=== PATIENT | female | born 1930 | race Caucasian/White ===

== ENCOUNTER 2018-09-10 18:51 | Observation (INO) ==
[2018-09-10] MEDS ORDERED: Naloxone 0.4 MG/ML INJ IVP PRN (22:40)
[2018-09-10] MEDS: Acetaminophen 325 MG TABLET PO PRN (23:18)
[2018-09-10 23:31] LABS: Prothrombin Time 11.9 Seconds (9.4-12.1)
[2018-09-10 23:33] LABS: Activated Partial Thrombo Time 31.4 Seconds (26.0-36.0)
[2018-09-10 23:40] LABS: Alanine Aminotransferase 10 Units/L (7-52); Albumin 3.9 g/dL (3.5-5.7); Albumin/Globulin Ratio 1.1 (1.1-2.2); Alkaline Phosphatase 38 Units/L (34-104); Aspartate Amino Transferase 22 Units/L (13-39); BUN/Creatinine Ratio 23 (6-26); Bilirubin,Total 0.5 mg/dL (0.3-1.0); Blood Urea Nitrogen 20 mg/dL (8-23); Calcium 8.8 mg/dL (8.6-10.3); Carbon Dioxide 23 mEq/L (23-29); Chloride 97 mEq/L (98-107); Globulin 3.6 g/dL (2.4-3.5); Glucose 109 mg/dL (70-105); Magnesium 1.5 mg/dL (1.6-2.6); Osmolality,Calculated 263 (280-300); Potassium 3.6 mEq/L (3.5-5.1); Sodium 125 mEq/L (136-145); Total Protein 7.5 g/dL (6.4-8.9); eGFR For African Americans > 60 (> 60); eGFR For Non-African Americans > 60 (> 60)
[2018-09-11 00:08] LABS: Basophils % 0.7 %; Eosinophils # 0.2 K/mcL (0.0-0.6); Eosinophils % 3.6 %; Hemoglobin 9.8 g/dL (11.5-15.4); Immature Granulocytes % 0.4 % (0-4); Mean Corpuscular HGB Conc 31.6 g/dL (31.6-35.5); Mean Corpuscular Hemoglobin 30.6 pg (28.0-33.3); Mean Corpuscular Volume 96.9 fL (83.0-100.0); Mean Platelet Volume 9.9 fL (9.4-12.4); Monocytes # 0.6 K/mcL (0.0-1.3); Monocytes % 10.2 %; Neutrophils # 3.7 K/mcL (1.6-8.9); Platelet Count 286 K/mcL (140-400); Red Cell Distribution Width 13.2 % (11.5-14.5); Segmented Neutrophils % 67.1 %; White Blood Count 5.5 K/mcL (4.3-11.1)
--- NOTE | 2018-09-11 00:25 | Internal Med History&Physical ---
Date of Encounter: 09/11/18 Time of Encounter: 00:23 Internal Medicine - H&P: HPI Chief complaint: Stroke-like symptoms History of present illness: Ms. Pastrana is a 88 year old female with a PMH of anemia, HTN and Anxiety who initially presented to [facility] after feeling extremely nauseous and dizzy. Patient states that symptoms started around 1 PM earlier this afternoon when she states she began feeling "sick to my stomach". Patient was also noting feeling nauseous and dizzy, noting a tendency to fall to her right side when she closed her eyes. This occurred just prior to having lunch. Denies any weakness to one side of the body, headache or blurred vision. Patient has had multiple falls in the past but nothing recent. Not currently on blood thinners. Denies any fever, chills, short of breath, chest pain, abdominal pain or diarrhea. Laboratory workup at [facility] was notable for anemia which appears to be chronic, hyponatremia with a sodium of 126. EKG showed normal sinus rhythm the absence of any ischemic findings. CT scan of her head showed no acute findings. CT scan of the chest without contrast showed a new 1.1 cm x 0.8 cm noncalcified pulmonary nodule within the right upper lobe. On arrival patient was found to have a blood pressure 178/98, pulse of 75 saturating 100% on room air.Patient was subsequently transferred here for further evaluation concerning for a posterior cerebellar stroke. On my assessment patient was alert oriented 3. She had no complaints at this time. Patient was neurologically intact. Past Med Surg Social Fam HX - Past Medical History Medical history: cancer, GERD, hypertension, osteoporosis Psychiatric history: no psych history - Past Surgical History Additional surgical history: skin cancer removed - Social History Smoking Status: Unknown if ever smoked Smokeless Tobacco Status: No Alcohol use: none Drug use: none - Family History Mother Living Status: Father Living Status: Hx Family Respiratory Disorders: Yes (asthma) Internal Medicine - H&P: Meds Alendronate Sodium [Fosamax] 70 mg PO WE 09/10/18 [History] Amlodipine Besylate 2.5 mg PO DAILY 09/10/18 [History] Bisacodyl [Dulcolax] 5 mg PO DAILY PRN 09/10/18 [History] LORazepam [Ativan] 0.25 mg PO BID PRN 09/10/18 [History] Omeprazole [PriLOSEC] 20 mg PO DAILY 09/10/18 [History] Sodium Chloride [Sodium Chloride Tab] 1 gm PO DAILY 09/10/18 [History] Ferrous Gluconate [Iron] 240 mg PO DAILY 09/11/18 [History] Sertraline [Zoloft] 25 mg PO HS 09/11/18 [History] Allergy/AdvReac Type Severity Reaction Status Date / Time Penicillins Allergy Mild Rash Verified 09/11/18 12:59 All Systems PM: A 10-system review of systems was performed and is negative for pertinent findings except as documented above in the HPI. - Constitutional Constitutional: no chills, no fever(s), no night sweats - EENT Eyes: no change in vision, no discharge, no pain, no photophobia Ears: no ear discharge, no ear pain, no tinnitus Nose, mouth and throat: no dysphagia, no nasal discharge, no neck pain, no sore throat - Cardiovascular Cardiovascular ROS IM: no chest pain, no diaphoresis, no dyspnea, no lightheadedness, no palpitations, no syncope - Respiratory Respiratory: no cough, no dyspnea, no wheezing, no excessive phlegm production - Gastrointestinal Gastrointestinal: no abdominal pain, no diarrhea, no hematemesis, no hematochezia, no melena, no nausea, no vomiting - Genitourinary Genitourinary: no change in urinary stream, no dysuria, no flank pain, no hematuria - Musculoskeletal Musculoskeletal ROS IM: no numbness, no tingling - Integumentary Integumentary IM: no rash, no unusual bruising - Neurological Neurological ROS: no confusion, no convulsions, no focal weakness, no numbness, no tingling, no tremor(s) - Hematologic/Lymphatic Hematologic/Lymphatic: no easy bruising - Constitutional Vitals: Temp Pulse Resp BP Pulse Ox 97.7 F 80 16 182/84 100 09/10/18 22:36 09/10/18 22:36 09/10/18 22:36 09/10/18 22:36 09/10/18 22:36 Exam: General: Alert and oriented 3 lying in bed in no acute distress Skin:Normal color, no rash, no lesions. HEENT:EOM, pupils equal, round and reactive. Cardiovascular:Normal S1 & S2, no rubs, murmurs or gallops. No JVD. Pulse regular. Lungs:Normal breath sounds, no wheezes or crackles. Abdomen:Soft, non-tender, no rigidity. Extremities:No deformity, no edema or tenderness, no joint swelling or clubbing. Neurological:Normal cognition and motor skills. Cranial nerves II through XII intact. No dysmetria. Sensation intact. No pronator drift. Muscle strength in the upper extremities 5 out of 5 bilaterally; lower extremities 4 out of 5 bilaterally. Pulses:Carotid and radial pulses normal +2. Rest of the physical exam is non contributory Internal Med - H&P Results - Labs CBC & Chem 7: 09/10/18 23:02 09/11/18 17:44 Labs: Short CBC 09/10/18 Range/Units 23:02 WBC 5.5 (4.3-11.1) K/mcL Hgb 9.8 L (11.5-15.4) g/dL Hct 31.0 L (35.3-44.9) % Plt Count 286 (140-400) K/mcL Neutrophils # 3.7 (1.6-8.9) K/mcL BMP 09/10/18 23:02 Sodium 125 L Potassium 3.6 Chloride 97 L Carbon Dioxide 23 BUN 20 Creatinine 0.86 Glucose 109 H Calcium 8.8 Cardiac Enzymes 09/10/18 Range/Units 23:02 Troponin I < 0.03 (< 0.04) ng/mL Liver Function 09/10/18 Range/Units 23:02 Total Bilirubin 0.5 (0.3-1.0) mg/dL AST 22 (13-39) Units/L ALT 10 (7-52) Units/L Alkaline Phosphatase 38 (34-104) Units/L Albumin 3.9 (3.5-5.7) g/dL - Assessment and Plan (1) Stroke-like symptoms Current Visit: Yes Status: Acute Assessment and plan: 88-year-old female with a past medical history of hypertension presenting from home with acute onset nausea and dizziness with reported drifting to her right side when she closes her eyes. No neurological deficits noted on examination. Laboratory workup notable for hyponatremia which appears somewhat chronic. CT of the head showing no acute findings. Patient transferred due to concern for TIA versus posterior cerebellar infarct. -Telemetry -Hold antihypertensives to allow for permissive hypertension -Neurochecks -Bedside swallow evaluation to follow -Obtain echo and carotid duplex in the morning -PT/OT consult -MRI with contrast. -Consider neurology consult if abnormal findings. (2) Hyponatremia Current Visit: Yes Status: Acute Assessment and plan: Patient presented with hyperosmolar hyponatremia with a sodium of 125. Patient appears to have chronic hyponatremia. Patient appears to be euvolemic. Review of previous lab results show sodium to be in the high 120s to low 130s. Patient is currently on sodium tablets. She reports that she has been drinking a lot of water lately. -We will start patient on gentle hydration with sodium checks every 2-4 hours. -We will obtain urine studies. -Continue sodium tablets. (3) Normocytic anemia Current Visit: Yes Status: Acute Assessment and plan: Normocytic anemia with a hemoglobin of 9.8. Patient is on iron supplementation. Suspect this to be chronic and at baseline. -We will obtain iron studies and monitor hemoglobin. (4) Hypertension Current Visit: Yes Status: Acute Assessment and plan: History of hypertension. Patient's blood pressure currently 182/84. -Hold amlodipine for now in the setting of permissive hypertension. Resume with MRI normal. Qualifiers: Hypertension type: essential hypertension Qualified Code(s): I10 - Essential (primary) hypertension (5) Solitary pulmonary nodule on lung CT Current Visit: Yes Status: Acute Assessment and plan: CT scan of the chest without contrast showed a new 1.1 cm x 0.8 cm noncalcified pulmonary nodule within the right upper lobe. -Consider Pulmonary consult vs outpatient follow up/surveillance (6) DVT prophylaxis Current Visit: Yes Status: Acute Assessment and plan: Subcutaneous heparin - Time Spent With Patient Total time spent is greater than 50% in coordination of care (as documented) at patient's floor/unit and/or counseling patient:
[2018-09-11 00:46] LABS: % Iron Saturation 19 % (15-50); Iron 61 mcg/dL (50-170); Transferrin 227 mg/dL (203-362)
[2018-09-11 01:05] LABS: Ferritin 40 ng/mL (10-120)
[2018-09-11 01:12] LABS: Chol/HDL Ratio 2.1 (0-4.9); Cholesterol 164 mg/dL (< 200); HDL Cholesterol 78 mg/dL (40-59); LDL Cholesterol,Calculated 77 mg/dL (0-99); Triglycerides 45 mg/dL (< 150)
[2018-09-11] MEDS ORDERED: 0.9 % Sodium Chloride 1,000 ML IVC SCH (01:15)
[2018-09-11 01:39] LABS: BUN/Creatinine Ratio 22 (6-26); Blood Urea Nitrogen 19 mg/dL (8-23); Calcium 8.9 mg/dL (8.6-10.3); Carbon Dioxide 24 mEq/L (23-29); Chloride 95 mEq/L (98-107); Glucose 108 mg/dL (70-105); Osmolality,Calculated 265 (280-300); Potassium 3.7 mEq/L (3.5-5.1); Sodium 126 mEq/L (136-145); eGFR For African Americans > 60 (> 60); eGFR For Non-African Americans > 60 (> 60)
[2018-09-11] MEDS ORDERED: Gadolinium Contrast Agent (WT Based) IV PRN (01:48)
[2018-09-11 01:53] LABS: Thyroid Stimulating Hormone 4.131 mcIU/mL (0.340-5.600)
[2018-09-11 02:48] LABS: Estimated Average Glucose 120 mg/dl
[2018-09-11] MEDS: *HR* Heparin 5,000 UNIT/ML VIAL SQ SCH ×3 (05:40→20:57)
[2018-09-11 07:54] LABS: Bilirubin,Urine Negative (Negative); Blood,Urine Negative (Negative); Clarity,Urine Clear (Clear); Color,Urine Yellow (Yellow); Glucose,Urine (UA) Normal (Normal); Ketones,Urine Trace mg/dL (Negative); Leukocyte Esterase,Urine Negative (Negative); Nitrite,Urine Negative (Negative); PH,Urine 7.5 pH Units (5.0-8.0); Protein,Urine Negative (Neg-Trace); Specific Gravity,Urine < 1.005 (1.010-1.025); Urobilinogen,Urine Normal (Normal)
[2018-09-11 07:55] LABS: Amphetamine Screen,Urine Negative ng/mL (Cutoff=1000); Barbiturate Screen,Urine Negative ng/mL (Cutoff=200)
[2018-09-11 07:56] LABS: Benzodiazepines Screen,Urine Positive ng/mL (Cutoff=300); Cannabinoid Screen,Urine Negative ng/mL (Cutoff = 50); Cocaine Screen,Urine Negative ng/mL (Cutoff= 300); Opiate Screen,Urine Negative ng/mL (Cutoff=300); Phencyclidine Screen,Urine Negative ng/mL (Cutoff=25)
--- NOTE | 2018-09-11 12:42 | Event Note ---
Date of Encounter: 09/11/18 Time of Encounter: 12:36 She was seen and examined earlier this a.m. by hospitalist services. Currently patient states she feels back to baseline discuss treatment plan with the patient Who verbalized understanding.
[2018-09-12] MEDS: *HR* LORazepam 0.5 MG TABLET PO PRN ×2 (03:49→21:10)
[2018-09-12 04:03] LABS: Basophils % 0.7 %; Eosinophils # 0.3 K/mcL (0.0-0.6); Eosinophils % 4.8 %; Hematocrit 28.9 % (35.3-44.9); Hemoglobin 9.2 g/dL (11.5-15.4); Lymphocytes # 1.1 K/mcL (0.6-4.6); Lymphocytes % 20.9 %; Mean Corpuscular HGB Conc 31.8 g/dL (31.6-35.5); Mean Corpuscular Hemoglobin 30.4 pg (28.0-33.3); Mean Corpuscular Volume 95.4 fL (83.0-100.0); Mean Platelet Volume 9.7 fL (9.4-12.4); Monocytes # 0.6 K/mcL (0.0-1.3); Monocytes % 11.1 %; Neutrophils # 3.4 K/mcL (1.6-8.9); Platelet Count 263 K/mcL (140-400); Red Blood Count 3.03 M/mcL (3.82-4.97); Red Cell Distribution Width 13.4 % (11.5-14.5); Segmented Neutrophils % 62.5 %; White Blood Count 5.4 K/mcL (4.3-11.1)
[2018-09-12 04:25] LABS: BUN/Creatinine Ratio 19 (6-26); Blood Urea Nitrogen 19 mg/dL (8-23); Calcium 8.8 mg/dL (8.6-10.3); Carbon Dioxide 23 mEq/L (23-29); Chloride 97 mEq/L (98-107); Glucose 95 mg/dL (70-105); Osmolality,Calculated 272 (280-300); Potassium 3.4 mEq/L (3.5-5.1); Sodium 130 mEq/L (136-145); eGFR For African Americans > 60 (> 60); eGFR For Non-African Americans 52 (> 60)
[2018-09-12] MEDS: *HR* Heparin 5,000 UNIT/ML VIAL SQ SCH ×3 (05:15→21:09)
[2018-09-12] MEDS ORDERED: Perflutren Lipid Microsphere 1.3 ML in 0.9 % Sodium Chloride 8.7 ML IVP ONE (10:30)
--- NOTE | 2018-09-12 14:23 | Internal Med Progress Note ---
Hospitalist Progress Note - Encounter Date of Encounter: 09/12/18 Time of Encounter: 13:54 - Subjective Interval History: Patient was seen and examined at bedside- will increase sodium tablets and monitor closely - echo pending - Exam Vitals: Temp Pulse Resp BP Pulse Ox 97.9 F 71 14 157/80 95 09/12/18 11:25 09/12/18 11:25 09/12/18 11:25 09/12/18 11:25 09/12/18 11:25 Exam: General: Alert and oriented 3 lying in bed in no acute distress Skin:Normal color, no rash, no lesions. HEENT:EOM, pupils equal, round and reactive. Cardiovascular:Normal S1 & S2, no rubs, murmurs or gallops. No JVD. Pulse regular. Lungs:Normal breath sounds, no wheezes or crackles. Abdomen:Soft, non-tender, no rigidity. Extremities:No deformity, no edema or tenderness, no joint swelling or clubbing. Neurological:Normal cognition and motor skills. Cranial nerves II through XII intact. No dysmetria. Sensation intact. No pronator drift. Muscle strength in the upper extremities 5 out of 5 bilaterally; lower extremities 4 out of 5 bilaterally. Pulses:Carotid and radial pulses normal +2. Rest of the physical exam is non contributory - Assessment and Plan (1) Stroke-like symptoms Current Visit: Yes Status: Acute Assessment and Plan: 88-year-old female with a past medical history of hypertension presenting from home with acute onset nausea and dizziness with reported drifting to her right side when she closes her eyes. No neurological deficits noted on examination. Laboratory workup notable for hyponatremia which appears somewhat chronic. CT of the head showing no acute findings. Patient transferred due to concern for TIA versus posterior cerebellar infarct. -Telemetry -Hold antihypertensives to allow for permissive hypertension -Neurochecks -Bedside swallow evaluation to follow -Obtain echo and carotid duplex in the morning -PT/OT consult -MRI with contrast. -Consider neurology consult if abnormal findings. 09/12 suspect rt hyponatremia- MRI and CT of head are negative echo is pending - will cont with sodium tablets and increase to TID (2) DVT prophylaxis Current Visit: Yes Status: Acute Assessment and Plan: Subcutaneous heparin (3) Hyponatremia Current Visit: Yes Status: Acute Assessment and Plan: Patient presented with hyperosmolar hyponatremia with a sodium of 125. Patient appears to have chronic hyponatremia. Patient appears to be euvolemic. Review of previous lab results show sodium to be in the high 120s to low 130s. Patient is currently on sodium tablets. She reports that she has been drinking a lot of water lately. -We will start patient on gentle hydration with sodium checks every 2-4 hours. -We will obtain urine studies. -Continue sodium tablets. 09/12 sodium up to 130 and IVF stopped increase sodium tablets to TID cont to monitor closely (4) Normocytic anemia Current Visit: Yes Status: Acute Assessment and Plan: Normocytic anemia with a hemoglobin of 9.8. Patient is on iron supplementation. Suspect this to be chronic and at baseline. -We will obtain iron studies and monitor hemoglobin. (5) Hypertension Current Visit: Yes Status: Acute Assessment and Plan: History of hypertension. MRI negative will resume home medications (6) Solitary pulmonary nodule on lung CT Current Visit: Yes Status: Acute Assessment and Plan: CT scan of the chest without contrast showed a new 1.1 cm x 0.8 cm noncalcified pulmonary nodule within the right upper lobe. -will have patient follow up as outpatient for repeat CT scan - Time Spent with Patient Total time spent is greater than 50% in coordination of care (as documented) at patient's floor/unit and/or counseling patient: Internal Medicine: Result - Labs CBC & Chem 7: 09/12/18 03:41 09/12/18 12:22 Labs: Short CBC 09/12/18 Range/Units 03:41 WBC 5.4 (4.3-11.1) K/mcL Hgb 9.2 L (11.5-15.4) g/dL Hct 28.9 L (35.3-44.9) % Plt Count 263 (140-400) K/mcL Neutrophils # 3.4 (1.6-8.9) K/mcL BMP 09/11/18 09/12/18 09/12/18 17:44 03:41 12:22 Sodium 129 L 130 L 129 L Potassium 3.4 L Chloride 97 L Carbon Dioxide 23 BUN 19 Creatinine 1.00 Glucose 95 Calcium 8.8 - ABG Interpretation ABG results: PT/INR, D-dimer PT 11.9 Seconds (9.4-12.1) 09/10/18 23:02 - Impressions Impressions Head MRA 09/11/18 01:48 IMPRESSION: Unremarkable MRA head. D/ / Ochoa Sessions / Ochoa Sessions Interpreting Provider: Ochoa Garcia Neck MRA 09/11/18 01:48 IMPRESSION: Unremarkable MRA of the neck. D/ / Ochoa Sessions / Ochoa Sessions Interpreting Provider: Ocoha Garcia Echocardiogram 09/12/18 22:42 Impressions: LVEF 60%. Mild left ventricular diastolic dysfunction. Definity echo contrast was used. Normal right ventricular structure and function. Mild-moderate tricuspid regurgitation. Mild aortic regurgitation. Mild mitral regurgitation. Mild pulmonary hypertension. No evidence of PFO with agitated saline contrast. Left Ventricular Wall Motion: Rest Echo Findings All wall segments showed normal motion. Findings: Study Quality * Technically adequate exam. ECG Findings * Normal sinus rhythm with ectopy. Left Ventricle * LVEF 60%. * Normal LV chamber size, wall thickness and function. * Mild left ventricular diastolic dysfunction. * Definity echo contrast was used. Right Ventricle * Normal right ventricular structure and function. Left Atrium * Moderately dilated left atrium. Right Atrium * Normal right atrial size. Tricuspid Valve * Normal tricuspid valve structure. * Mild-moderate tricuspid regurgitation. * Estimated RA pressure is 3 mmHg. * Estimated RVSP is 41 mmHg. * Mild pulmonary hypertension. Aortic Valve * Trileaflet aortic valve. * No aortic stenosis. * Mild aortic regurgitation. Mitral Valve * Mild mitral regurgitation. * No mitral stenosis. * Mildly thickened mitral valve leaflets. * Mild mitral annular calcification Pulmonic Valve * Pulmonic valve is not well visualized. * No pulmonic stenosis. * Trace pulmonic regurgitation. Pulmonary Artery * Pulmonary artery not well visualized. Aorta * Normally sized aortic root. Pericardium * There is no pericardial effusion present. Interatrial Septum * No evidence of PFO by color Doppler. * No evidence of PFO with agitated saline contrast. IVC * Normal IVC dimensions and inspiratory collapse. Consult Discharge Plan - Plan Referrals: Rosendo Tinoco, [facility] [facility] [Primary Care Provider] - ___ (5) Hypertension Qualifiers: Hypertension type: essential hypertension Qualified Code(s): I10 - Essential (primary) hypertension
[2018-09-12] MEDS: amLODIPine 5 MG TABLET PO SCH (17:47)
[2018-09-12] MEDS: Acetaminophen 325 MG TABLET PO PRN (21:09)
[2018-09-13 05:26] LABS: Basophils # 0.1 K/mcL (0.0-0.2); Eosinophils # 0.3 K/mcL (0.0-0.6); Eosinophils % 5.6 %; Hematocrit 28.3 % (35.3-44.9); Hemoglobin 9.1 g/dL (11.5-15.4); Immature Granulocytes % 0.4 % (0-4); Lymphocytes # 1.2 K/mcL (0.6-4.6); Lymphocytes % 23.9 %; Mean Corpuscular HGB Conc 32.2 g/dL (31.6-35.5); Mean Corpuscular Hemoglobin 30.4 pg (28.0-33.3); Mean Corpuscular Volume 94.6 fL (83.0-100.0); Mean Platelet Volume 9.7 fL (9.4-12.4); Monocytes # 0.6 K/mcL (0.0-1.3); Platelet Count 259 K/mcL (140-400); Red Blood Count 2.99 M/mcL (3.82-4.97); Red Cell Distribution Width 13.2 % (11.5-14.5); Segmented Neutrophils % 58.1 %; White Blood Count 5.2 K/mcL (4.3-11.1)
[2018-09-13] MEDS: *HR* Heparin 5,000 UNIT/ML VIAL SQ SCH ×2 (05:40→14:11)
[2018-09-13 05:47] LABS: BUN/Creatinine Ratio 21 (6-26); Blood Urea Nitrogen 21 mg/dL (8-23); Calcium 8.9 mg/dL (8.6-10.3); Carbon Dioxide 23 mEq/L (23-29); Chloride 98 mEq/L (98-107); Glucose 99 mg/dL (70-105); Osmolality,Calculated 275 (280-300); Potassium 3.5 mEq/L (3.5-5.1); Sodium 131 mEq/L (136-145); eGFR For African Americans > 60 (> 60); eGFR For Non-African Americans 52 (> 60)
[2018-09-13] MEDS: amLODIPine 5 MG TABLET PO SCH (08:01)
[2018-09-13 12:43] VITALS: BP 170/81
--- NOTE | 2018-09-13 13:20 | Discharge Summary ---
- NOTES TO OUTPATIENT PROVIDER Notes to Outpatient Provider: Na was low 125 increased Na tabs to TID will recheck chem 7 and monitor - adjust as needed. Had pulmonary nodule will need to recheck CT and monitor Date of Encounter: 09/13/18 Time of Encounter: 13:21 - Discharge Diagnosis (1) Stroke-like symptoms Priority: Primary Status: Acute (2) Hyponatremia Priority: Secondary Status: Acute (3) Normocytic anemia Priority: Secondary Status: Acute (4) Hypertension Priority: Secondary Status: Acute Qualifiers: Hypertension type: essential hypertension Qualified Code(s): I10 - Essential (primary) hypertension (5) Solitary pulmonary nodule on lung CT Priority: Secondary Status: Acute Hospital course: Ms. Pastrana is a 88 year old female surgical history of anemia hypertension anxiety hyponatremia who presented to the [facility] to feeling extremely nauseous and dizzy. Symptoms started 1 PM earlier prior to admission she began to feel sick to her stomach-denied any weakness headache or blurred vision. She states she has had multiple falls in the past but nothing recently Dr. Herrmann blood thinners lab work shows a chronic anemia as well as chronic hyponatremia EKG with no ischemic changes CT of head showed no acute findings CT of chest did show a new 1.1 cm by her 0.8 cm noncalcified pulmonary nodule within the right upper lobe. She was transferred to [place] for further workup and management. Upon arrival at that time was 125 he was given IV fluids and sodium tablets were increased. She gradually in proved up to 129-130 fluids were stopped. Cardiac echo with EF of 60% with no PFO MRA of head and neck with nothing acute was evaluated by PT and OT with no needs noted-sodium level did improve up to 131. Patient will be discharged home with increased sodium tablets 1gm BID- we will recheck sodium in a couple days she did have a slightly elevated blood pressure increased amlodipine to 5 mg advised patient to check blood pressure daily and keep a log she will follow-up with her primary care provider. Currently she is hemodynamically stable this time and ready for discharge. - Time Spent with Patient Total time spent providing and/or coordinating discharge services: - Discharge Medications Prescriptions: New Ferrous Sulfate 325 mg PO 0800 #30 tablet Sodium Chloride [Sodium Chloride Tab] 1 gm PO BID 2 Days #14 tablet Continued Alendronate Sodium [Fosamax] 70 mg PO WE Omeprazole [PriLOSEC] 20 mg PO DAILY Bisacodyl [Dulcolax] 5 mg PO DAILY PRN PRN Reason: Constipation LORazepam [Ativan] 0.25 mg PO BID PRN PRN Reason: Anxiety Sertraline [Zoloft] 25 mg PO HS Changed Amlodipine Besylate 5 mg PO DAILY #30 tablet Discontinued Sodium Chloride [Sodium Chloride Tab] 1 gm PO DAILY No Action Ferrous Gluconate [Iron] 240 mg PO DAILY Home Medications: Alendronate Sodium [Fosamax] 70 mg PO WE 09/10/18 [History] Bisacodyl [Dulcolax] 5 mg PO DAILY PRN 09/10/18 [History] LORazepam [Ativan] 0.25 mg PO BID PRN 09/10/18 [History] Omeprazole [PriLOSEC] 20 mg PO DAILY 09/10/18 [History] Ferrous Gluconate [Iron] 240 mg PO DAILY 09/11/18 [History] Sertraline [Zoloft] 25 mg PO HS 09/11/18 [History] Amlodipine Besylate 5 mg PO DAILY #30 tablet 09/13/18 [Rx] Ferrous Sulfate 325 mg PO 0800 #30 tablet 09/13/18 [Rx] Sodium Chloride [Sodium Chloride Tab] 1 gm PO BID 2 Days #14 tablet 09/13/18 [Rx] Allergies/Adverse Reactions: Allergy/AdvReac Type Severity Reaction Status Date / Time Penicillins Allergy Mild Rash Verified 09/11/18 12:59 Date of admission: 09/10/18 22:07 Primary care physician: Rosendo Tinoco CNP Consults: 09/12/18 13:48 Consult to Physical Therapy [CONS] Routine Comment: Evaluate, develop and implement POC Reason for Consult: weakness Does patient have active BEDREST order?: No Is patient medically & hemodynamically stable?: Yes Patient assessed for mobility or mobilized this visit?: No Discharging clinician: [place] Anticipated date of discharge: 09/13/18 - Constitutional Vitals: Temp Pulse Resp BP Pulse Ox 97.7 F 58 17 170/81 98 09/13/18 12:36 09/13/18 12:36 09/13/18 12:36 09/13/18 12:36 09/13/18 12:36 Exam: Skin: Free of rash and discoloration. Eyes: Sclera is white. There is no discharge from eyes. ENMT: Oral/pharyngeal mucosa is normal in appearance. There is no discharge from nose or ears. Respiratory: Normal breath sounds with no crackles and wheezes bilaterally. CV: Heart is regular with no gallop or murmur. GI: Abdomen is flat and soft with no palpable mass or visceromegaly. : There is no tenderness in patient's flanks bilaterally. Neuro exam: He has good strength in upper and lower extremities. He has normal eye movements. Psychiatric: He has normal affect. His thought process is appropriate to the situation. - Patient Status Disposition: Home, Self-Care Condition: Good Functional capacity at discharge: independent ambulation Overall status at discharge: patient is back to baseline - Ambulatory Orders Ambulatory Orders: Basic Metabolic Panel [CHEM] Time Frame: 09/16/18, Facility: [facility], Location: Lab - Discharge Instructions Instructions: Amlodipine (By mouth), Sodium Chloride (By mouth), Chronic Hypertension (DC), Anemia (GEN) Follow Up With: Noemí Tinoco [Advanced Practice Nurse] - 09/15/18 1:00 pm - Diet and Activity Activity: increase activity as tolerated Diet: advance to your usual diet
== END 2018-09-13 15:42 | disposition home or self-care (01) ==
LOC: 3BNU → UNDODISOB 09-13 15:08
PROVIDERS: ADMIT Internal Medicine Nephrology; ATTEND Internal Medicine Nephrology